=== PATIENT | male | born 1980 | race Caucasian/White ===

== ENCOUNTER 2017-02-06 13:15 | Emergency (ER) | payer OTHER ==
[2017-02-06 13:21] VITALS: BP 152/80; PULSE 64; RESP 20; TEMP 98; O2SAT 96
[2017-02-06] MEDS ORDERED: IBUP800T23 PO (13:56)
--- NOTE | 2017-02-06 13:56 | PD ---
HPI Chief Complaint: Musculoskeletal Complaint Time Seen by Provider: 13:40 Travel History International Travel<30 days: No Contact w/Intl Traveler<30days: No Traveled to known affect area: No History of Present Illness HPI 36-year-old male presents emergency department for evaluation of bilateral hand pain/burning sensation for the last 6 months. Patient reports he has a burning sensation in both hands involving the fingers. He reports this pain is worse when his wrists are flexed. He denies injury or trauma to the area. He denies weakness in the extremities. He reports repetitive hand motions while at work. He is a animation artist and escrow officer. [facility] Past Medical History Medical History: Denies Significant Hx Tetanus Vaccination: > 5 Years Influenza Vaccination: No Past Surgical History Surgical History: No Previous Surgery Social History Alcohol Use: No Tobacco Use: Yes (1 PPD) Substance Use: No Allergies-Medications (Allergen,Severity, Reaction): Coded Allergies: Novocain (Verified Adverse Reaction, Severe, Hallucinations , 02/06/17) Reported Meds & Prescriptions Reported Meds & Active Scripts Active No Active Prescriptions or Reported Medications Review of Systems Except as stated in HPI: all other systems reviewed are Neg Physical Exam Narrative GENERAL: Well-nourished, well-developed patient. SKIN: Focused skin assessment warm/dry. HEAD: Normocephalic. EYES: No scleral icterus. No injection or drainage. NECK: Supple, trachea midline. No JVD or lymphadenopathy. CARDIOVASCULAR: Regular rate and rhythm without murmurs, gallops, or rubs. RESPIRATORY: Breath sounds equal bilaterally. No accessory muscle use. GASTROINTESTINAL: Abdomen soft, non-tender, nondistended. MUSCULOSKELETAL: No cyanosis, or edema. Positive Phalen's test. Normal sensation with 2-point termination of the upper extremities. 5 out of 5 strength in the upper extremities. Brisk cap refill. BACK: Nontender without obvious deformity. No CVA tenderness. Data Data Last Documented VS Vital Signs Date Time Temp Pulse Resp B/P Pulse Ox O2 Delivery O2 Flow Rate FiO2 02/06/17 13:21 98.0 64 20 152/80 96 MDM Medical Decision Making Medical Screen Exam Complete: Yes Emergency Medical Condition: Yes Differential Diagnosis Carpal tunnel syndrome, neuropathy Narrative Course 36-year-old male presents emergency department for bilateral hand pain and burning sensation in his first 3 digits for greater than 6 months. On exam has positive Phalen's test exam is consistent with carpal tunnel. He is referred to orthopedic for follow-up. NSAIDs prescribed. Diagnosis Primary Impression: Carpal tunnel syndrome Qualified Code: G56.03 - Bilateral carpal tunnel syndrome Referrals: Bryce Russ MD Orthopedist Scripts Ibuprofen 800 Mg Ost093 Mg PO Q8H PRN (Pain/Inflammation) #30 TAB Prov:Luanne Bingham 02/06/17 Disposition: 01 DISCHARGE HOME Condition: Stable Luanne Bingham Feb 06, 2017 13:56
== END 2017-02-06 14:05 | disposition home or self-care (01) ==
LOC: PHEFT 13:15
DX: G56.03 Carpal tunnel syndrome, bilateral upper limbs (principal)
CPT/HCPCS: 99283; L3908